=== PATIENT | male | born 1965 | race Caucasian/White ===

== ENCOUNTER → 2020-09-05 08:14 | Outpatient (BNVA) | payer SELFPAY | PROVIDERS: PCP Internal Medicine; Referring Provider Internal Medicine; Visit Provider Internal Medicine Cardiovascular Disease | DX: I44.4 Left anterior fascicular block (principal); I10 Essential (primary) hypertension; E11.9 Type 2 diabetes mellitus without complications; Z91.89 Other specified personal risk factors, not elsewhere classified; Z79.82 Long term (current) use of aspirin; Z79.84 Long term (current) use of oral hypoglycemic drugs; Z79.899 Other long term (current) drug therapy | CPT/HCPCS: 93005; 99212 ==

== ENCOUNTER → 2022-08-19 10:35 | Outpatient (BNVA) | payer BC, SELFPAY | PROVIDERS: PCP Internal Medicine; Referring Provider Internal Medicine; Visit Provider Internal Medicine Cardiovascular Disease | DX: Z09 Encounter for follow-up examination after completed treatment for conditions other than malignant neoplasm (principal); Z91.89 Other specified personal risk factors, not elsewhere classified; I10 Essential (primary) hypertension | CPT/HCPCS: 93005 ==

== ENCOUNTER 2023-12-21 16:03 | Outpatient (AMB) | payer BC, SELFPAY ==
[2023-12-21 16:19] VITALS: BP 132/80; PULSE 100; O2SAT 97; BMI 29.8
--- NOTE | 2023-12-21 16:19 | A.OFFPC_ITS ---
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 Accompanied by: Self / Same As Patient Allergies simvastatin Allergy (Intermediate, Verified 12/21/23 16:45) muscle pain/cramps, muscle cramps Medication List - Last Reconciled 12/21/23 by Lamont Gill MD cholecalciferol (vitamin D3) 50 mcg PO DAILY 90 days coenzyme Q10 100 mg PO DAILY lisinopril-hydrochlorothiazide 20-12.5 mg 1 tab PO DAILY 90 days lorazepam Take 1/2 to 1 tablet PO daily PRN; 30 days metformin ER 1,000 mg (2 x 500 mg) PO BID 90 days omega-3 fatty acids (Fish Oil Concentrate) 1,000 mg PO DAILY rosuvastatin 10 mg PO DAILY Tobacco use date assessed: 12/17/22 Dental Screening Dental Screen Date: 12/21/23 Did you have a dental visit in the last 12 months?: Yes Did you have a dental problem in the last 6 months where you did not have access to dental care?: No Was dental information given to patient?: Patient has dentist PAMELLA cabrales HPI Details Patient comes in today for his annual physical examination States that he feels well He denies any headaches or dizziness Denies any chest pains, no shortness of breath No nausea / vomiting, no abdominal pain No change in bowel habits noted Denies any acute urinary symptoms Had his follow-up labs done at [facility] a couple of weeks ago - to discuss his results Patient is up-to-date with his colon cancer screening - will be due repeat colonoscopy in late 2024 [facility] Medical History (Updated 12/22/23 @ 03:17 by Lamont Gill MD) Vitamin D deficiency Mixed hyperlipidemia Family history of heart disease Spindle cell sarcoma Impaired fasting glucose Overweight (BMI 25.0-29.9) Pure hypercholesterolemia Benign essential hypertension Anxiety LAFB (left anterior fascicular block) Surgical History (Updated 12/22/23 @ 03:18 by Lamont Gill MD) Hx of colonoscopy (~10/15/15) Hx of right knee surgery (~1986) Hx of abdominal surgery (~1999) History of rotator cuff surgery Family History Father CVD (cardiovascular disease) Mother CVD (cardiovascular disease) Social History Housing: House Alcohol intake: current Alcohol intake frequency: a few times a week Patient Tobacco Use Status: Never used Tobacco e-Cigarette/Vaping Use: Never Used Second Hand Smoke Exposure: Yes service: Yes Current occupational status: employed Current occupation: industrial tech instructor Cognitive needs: No Hearing needs: No Vision needs: No Questionnaire PHQ-9 Over the last 2 weeks, how often have you been bothered by any of the following problems? 1. Little interest or pleasure in doing things: not at all 2. Feeling down, depressed, or hopeless: not at all 3. Trouble falling or staying asleep, or sleeping too much: not at all 4. Feeling tired or having little energy: not at all 5. Poor appetite or overeating: not at all 6. Feeling bad about yourself - or that you are a failure or have let yourself or your family down: not at all 7. Trouble concentrating on things, such as reading the newspaper or watching television: not at all 8. Moving or speaking so slowly that other people could have noticed. Or the opposite - being so fidgety or restless that you have been moving around a lot more than usual: not at all 9. Thoughts that you would be better off or of hurting yourself in some way: not at all Total score: 0 Depression Screening Interpretation: Negative Depression Screening Done: Yes 14829 - PHQ-9 Billing: Yes Source: Developed by Drs. Trevor Carreon, Pricila Putnam, Venancio Castaneda and colleagues, with an educational stacey from [employer]. Thrive Questionnaire Date Thrive assessed: 12/21/23 I am a: Patient What is your living situation today?: I have a steady place to live Within the past 12 months, did the food you bought not last and you didn't have the money to get more?: Never true Within the past 12 months, did you worry whether your food would run out before you got money to buy more?: Never true Do you have trouble paying for medicines?: No Do you have trouble getting transportation to medical appointments?: No Do you have trouble paying your heating and electricity bill?: No Do you have trouble taking care of your child, family member or friend?: No Do you have trouble with day-to-day activities such as bathing, preparing meals, shopping, managing finances, etc.?: No Are you currently unemployed and looking for a job?: No Are you interested in more education?: No Please select the resources that you would like help with: None Currently or been in a relationship where the following occur: no concerns reported THRIVE Score: 0 AUDIT C Alcohol Use Questionnaire (AUDIT-C) 1. How often do you have a drink containing alcohol?: 2-3 times a week 2. How many drinks containing alcohol do you have on a typical day when you are drinking?: 1 or 2 3. How often do you have six or more drinks on one occasion?: Never Total Score: 3 Score Reviewed/Action Taken: Yes JOANN-7 AMB Questionnaire JOANN-7 Date JOANN - 7 assessed: 12/21/23 Feeling nervous, anxious, or on edge: 0 = Not at all Not being able to stop or control worryin = Not at all Worrying too much about different things: 0 = Not at all Trouble relaxin = Not at all Being so restless that it is hard to sit still: 0 = Not at all Becoming easily annoyed or irritable: 0 = Not at all Feeling afraid as if something awful might happen: 0 = Not at all Total JOANN-7 score (0-4 normal; 5-9 mild; 10-14 moderate; 15-21 severe): 0 Source: Developed by Drs. Trevor Carreon, Pricila Putnam, Venancio Castaneda and colleagues, with an educational stacey from [employer]. Review of Systems Const Denies chills, Denies fatigue, Denies fever(s), Denies headache(s), Denies malaise and Denies weakness Eyes Denies blurry vision, Denies change in vision, Denies irritation and Denies itchy eyes ENT Denies dysphagia, Denies dizziness, Denies otalgia, Denies headache(s), Denies nasal congestion, Denies neck pain, Denies odynophagia and Denies sore throat Card Denies chest pain, Denies rapid heart rate, Denies irregular heart rhythm, Denies palpitations and Denies dyspnea Resp Denies chest congestion, Denies cough, Denies dyspnea and Denies wheezing GI Denies abdominal pain, Denies bloating, Denies constipation, Denies dysphagia, Denies heartburn, Denies diarrhea, Denies nausea, Denies odynophagia and Denies vomiting Denies hematuria, Denies difficulty urinating, Denies dysuria, Denies urinary frequency and Denies urinary urgency Musc Denies back pain, Denies arthralgias, Denies joint swelling, Denies muscle weakness and Denies neck pain Skin/Breast Denies change in pigmentation, Denies lesions, Denies rash and Denies unusual bruising Neuro Denies dizziness, Denies headache(s), Denies paresthesias and Denies weakness Endo Denies fatigue and Denies palpitations Aller/Immun Denies itchy eyes and Denies wheezing Physical exam (Primary Care) Vital Signs: Last Vital Signs Pulse 100 12/21/23 16:19 BP 132/80 12/21/23 16:19 Pulse Ox 97 12/21/23 16:19 Oxygen Delivery Method Room Air 12/21/23 16:19 BMI result Body Mass Index 29.8 Tobacco/Smoking Status: Tobacco use Status Tobacco use date assessed 12/17/22 12/21/23 16:21 Patient Tobacco Use Status Never used Tobacco 12/21/23 16:21 e-Cigarette/Vaping Use Never Used 12/21/23 16:21 PHQ-9: PHQ-9 Score PHQ-9: Total score 0 12/22/23 02:54 Depression Screening Interpretation: Negative Thrive Assessment: Date of Thrive Assessment Date Thrive assessed 12/21/23 12/21/23 16:21 Currently or been in a relationship where the following occur: no concerns reported Const General: no acute distress, alert and awake Orientation/consciousness: patient oriented x3 HENMT Head: Yes normocephalic and Yes atraumatic Ears: external ears normal, TM's normal bilaterally and EAC's normal General nose exam: No nasal discharge present Face and sinus: Yes normal facial exam and Yes sinuses nontender Teeth and gingiva: dentition normal Throat: Yes posterior oropharynx normal and Yes tonsils normal (no TP congestion) Eyes Eyelids: Yes eyelids normal Conjunctivae: conjunctivae normal Pupils: Equal, round and reactive pupils present EOM: EOMs intact bilaterally Neck Neck: Yes no lymphadenopathy and Yes supple Thyroid: Thyroid normal Resp Auscultation: clear to auscultation bilaterally, no rales and no wheezes Cardio Rate: regular rate Rhythm: regular rhythm Heart sounds: no murmurs GI Palpation (GI): Soft to palpation, nontender and No hepatosplenomegaly present Auscultation: normal bowel sounds General: Yes no CVA tenderness Back/Spine/Pelvis Back: no CVA tenderness Thoracic/Lumbar Spine: thoracic and lumbar spine normal to inspection Skin Lesions: no lesions Rashes: no rashes Neuro General: patient oriented x3, moves all extremities, no focal motor deficits and CN's II-XI intact bilaterally Cranial nerves: Yes Equal, round and reactive pupils present Cognition (Neuro): normal cognition Gait exam (Neuro): Normal gait present Extrem General: Yes no clubbing, cyanosis or edema Assessment and Plan Assessment & Plan (1) Annual physical exam: Code(s): Z00.00 - Encounter for general adult medical examination without abnormal findings Plan: Results of his labs done a couple of weeks ago reviewed and discussed with patient He is up-to-date with his colon cancer screening - will be due for repeat colonoscopy in late 2024 (2) Elevated PSA: Code(s): R97.20 - Elevated prostate specific antigen [PSA] Plan: Patient cautioned that his PSA level is still elevated at 3.40 on his recent labs; his level increased from 1.55 to 3.60 last year Patient states that he remains asymptomatic and denies any acute urinary symptoms but as his PSA remains elevated from last year, will refer him to urology for further evaluation and management (3) Pure hypercholesterolemia: Code(s): E78.00 - Pure hypercholesterolemia, unspecified Plan: Patient is advised that his cholesterol level has increased again slightly from previous on his recent labs (LDL cholesterol has increased slightly from 94.8 to 103.6 mg/dl Reinforced low cholesterol diet Continue Rosuvastatin 10 mg QD and Co-Q10 tablets daily Will recheck his labs and fasting lipids in 1 year for follow up (4) Benign essential hypertension: Code(s): I10 - Essential (primary) hypertension Plan: Reinforced low sodium diet - goal is systolic BP of at 120 mm or less Continue Lisinopril-HCT 20-12.5 mg QD (5) Impaired fasting glucose: Code(s): R73.01 - Impaired fasting glucose Plan: HgbA1c was at 6.1% on his labs done a couple of weeks ago; was at 6.2% last year Reinforced low calorie/diabetic diet and exercise as tolerated Continue Metformin ER 500 mg 2 tablets BID Will recheck his FBS and HgbA1c again in 1 year for follow up (6) LAFB (left anterior fascicular block): Code(s): I44.4 - Left anterior fascicular block Plan: Left anterior fascicular block is unchanged at his last cardiology visit in August 2020 -?no interventions required and will continue to monitor this regularly Follow up with cardiology as scheduled (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, unspecified Plan: S/P extensive surgery of his right abdominal wall at [facility] in [place] in 1999 (8) Vitamin D deficiency: Code(s): E55.9 - Vitamin D deficiency, unspecified Plan: Continue Vitamin D3 2000 units QD (9) Anxiety: Code(s): F41.9 - Anxiety disorder, unspecified Plan: Continue Lorazepam 1 mg 1/2 to 1 tablet QD PRN (10) Overweight (BMI 25.0-29.9): Code(s): E66.3 - Overweight Plan: Reinforced diet/exercise as tolerated/lose weight Plan To return in 1 year for his next annual physical examination Orders: Orders Complete Blood Count Auto Diff 364 Days D64.9 - Anemia, unspecified, Z00.00 - Encounter for general adult medical examination without abnormal findings Comprehensive Pearl. Panel Fast 364 Days E78.00 - Pure hypercholesterolemia, unspecified, Z00.00 - Encounter for general adult medical examination without abnormal findings UA CC w/rflx Micro + Cult 364 Days R30.0 - Dysuria, Z00.00 - Encounter for general adult medical examination without abnormal findings Vitamin D 25-OH Total 364 Days E55.9 - Vitamin D deficiency, unspecified, Z00.00 - Encounter for general adult medical examination without abnormal findings Lipid Panel 364 Days E78.00 - Pure hypercholesterolemia, unspecified, Z00.00 - Encounter for general adult medical examination without abnormal findings TSH reflex Free T4 364 Days E78.00 - Pure hypercholesterolemia, unspecified, Z00.00 - Encounter for general adult medical examination without abnormal findings Prostate Specific Antigen 364 Days R97.20 - Elevated prostate specific antigen [PSA], Z00.00 - Encounter for general adult medical examination without abnormal findings Hemoglobin A1c 364 Days R73.01 - Impaired fasting glucose, Z00.00 - Encounter for general adult medical examination without abnormal findings Referrals Urology Referral R97.20 - Elevated prostate specific antigen [PSA] Coding Level of Care Code Est Pt Prev Care 40-64y(27498) Diagnoses Annual physical exam Z00.00 Elevated PSA R97.20 Pure hypercholesterolemia E78.00 Benign essential hypertension I10 Impaired fasting glucose R73.01 LAFB (left anterior fascicular block) I44.4 Spindle cell sarcoma C49.9 Vitamin D deficiency E55.9 Anxiety F41.9 Overweight (BMI 25.0-29.9) E66.3
== END 2023-12-21 17:05 | disposition home or self-care (01) ==
PROVIDERS: PCP Internal Medicine; Visit Provider Internal Medicine
DX: Z00.00 Encounter for general adult medical examination without abnormal findings (principal); C49.9 Malignant neoplasm of connective and soft tissue, unspecified; R97.20 Elevated prostate specific antigen [PSA]; E78.00 Pure hypercholesterolemia, unspecified; I10 Essential (primary) hypertension; R73.01 Impaired fasting glucose; I44.4 Left anterior fascicular block; E55.9 Vitamin D deficiency, unspecified; F41.9 Anxiety disorder, unspecified; E66.3 Overweight
CPT/HCPCS: 99396

== ENCOUNTER 2024-10-18 14:35 | Outpatient (AMB) | payer BC, SELFPAY ==
--- NOTE | 2024-10-18 14:39 | A.OFFVIS_ITS ---
Vital Signs 10/18/24 14:42 Height 5 ft 10 in Weight 202 lb 13.204 oz BMI 29.1 BP 120/72 Blood Pressure Location Lt brachial Position Sitting Pulse 100 Intake Visit Reasons: 2 yr f/up Intake Note: 2 year follow-up with ekg feeling good [place] Required: No Allergies simvastatin Allergy (Intermediate, Verified 12/21/23 16:45) muscle pain/cramps, muscle cramps Medication List - Last Reconciled 10/18/24 by Bob Aviles MD lisinopril-hydrochlorothiazide 20-12.5 mg 1 tab PO DAILY 90 days metformin ER 1,000 mg (2 x 500 mg) PO BID 90 days HPI Comments Details: Juan comes for follow-up. He has been doing very well from cardiac perspective. He said he has participate in intense lifestyle modification has lost some weight. He has also been exercising regularly. He denies any exertional chest pain or shortness of breath. His blood pressures been better controlled. He said his hemoglobin A1c has not been checked. He is currently off statin therapy as he did not want to be on a lot of different medications. No recent lipid panel. Comes for further evaluation management. [facility] Medical History Vitamin D deficiency Mixed hyperlipidemia Family history of heart disease Spindle cell sarcoma Impaired fasting glucose Overweight (BMI 25.0-29.9) Pure hypercholesterolemia Benign essential hypertension Anxiety LAFB (left anterior fascicular block) Surgical History Hx of colonoscopy (~10/15/15) Hx of right knee surgery (~1986) Hx of abdominal surgery (~1999) History of rotator cuff surgery Family History Father CVD (cardiovascular disease) Mother CVD (cardiovascular disease) Social History Housing: House Alcohol intake: current Alcohol intake frequency: a few times a week Patient Tobacco Use Status: Never used Tobacco e-Cigarette/Vaping Use: Never Used Second Hand Smoke Exposure: Yes service: Yes Current occupational status: employed Current occupation: boilermaker industrial boilers Cognitive needs: No Hearing needs: No Vision needs: No Review of Systems Const Denies chills, Denies fatigue, Denies fever(s), Denies frequent falls, Denies weakness, Denies weight gain and Denies weight loss ENT Denies dizziness Card Denies chest pain, Denies leg edema, Denies lightheadedness, Denies palpitations, Denies dyspnea, Denies dyspnea on exertion, Denies orthopnea and Denies other (loss of consciousness) Resp Denies cough, Denies dyspnea and Denies dyspnea on exertion GI Denies hematochezia and Denies change in stool character Musc Denies abnormal gait, Denies muscle weakness, Denies numbness, Denies radiating pain into limb and Denies tingling Neuro Denies abnormal gait, Denies dizziness, Denies frequent falls, Denies numbness, Denies tingling and Denies weakness Endo Denies fatigue and Denies palpitations Physical Exam Vital Signs: Last Vital Signs Pulse 100 10/18/24 14:42 BP 120/72 10/18/24 14:42 BMI result Body Mass Index 29.1 Const General: cooperative, healthy appearing, comfortable, no acute distress, well developed, alert and awake Nutritional Appearance: overweight Orientation/consciousness: patient oriented x3 Limitations: no limitations HEENT Head: Yes normal to inspection, Yes normocephalic and Yes atraumatic Eyes General: appearance normal, both eyes and all related structures Neck Neck: Yes normal visual inspection, Yes trachea midline, Yes supple and Yes no JVD Carotids: other ( No carotid bruit) Chest Chest palpation & inspection: normal inspection of the chest Resp Effort & Inspection: normal respiratory effort Auscultation: clear to auscultation bilaterally Cardio Jugular venous distension: no JVD Palpation: normal PMI Rate: regular rate Rhythm: regular rhythm Heart sounds: S1 normal heart sound present Peripheral pulses: Peripheral pulses 2+ throughout GI Inspection: Yes normal to inspection Auscultation: normal bowel sounds Skin General skin exam: no rashes or lesions noted, elasticity normal and turgor normal Neuro General: patient oriented x3 and no focal motor deficits Extrem General: Yes no clubbing, cyanosis or edema Psych Appearance: grossly normal Office Procedures EKG Details: EKG shows normal sinus rhythm with right superior axis deviation. [id number], Complete Assessment & Plan Assessment & Plan (1) Mixed hyperlipidemia: Code(s): E78.2 - Mixed hyperlipidemia Category: Medical Plan: Mixed hyperlipidemia in this middle-aged man has been participating intense lifestyle modifications currently on statin therapy. Has multiple risk factors for vascular disease. He is currently not having any active symptoms. I suggest him to follow-up with repeat lipid panel fasting along with CRP as well as apolipoprotein B and lipoprotein a in the near future. Also suggested further screening for atherosclerosis with coronary calcium score. Will further direct therapy based on the findings. We discussed about given his underlying risk factor if he has significant calcium buildup may need further provocative testing to evaluate for myocardial ischemia even if he is asymptomatic. He understands and is wanting to pursue this. (2) HTN (hypertension): Code(s): I10 - Essential (primary) hypertension Category: Medical Plan: Hypertension which is currently well optimized advised to monitor blood pressure at home maintain a log. Goal blood pressure less than 130/84. Continue current therapy which has helped him significantly. Low-salt diet was discussed maintain heart healthy lifestyle and regular physical activity. Will follow up in the clinic in 2 years time, sooner p.r.n.. Thank you for allowing me to partake in his care Orders: Orders Apolipoprotein B Today E78.2 - Mixed hyperlipidemia Lipoprotein A Today E78.2 - Mixed hyperlipidemia CRP High Sensitivity Today E78.2 - Mixed hyperlipidemia CT Coronary Calcium Score 4 Weeks E78.2 - Mixed hyperlipidemia Lipid Panel Today E78.2 - Mixed hyperlipidemia Coding Level of Care Code Est Pt Level 4 (88774) Complex EM visit Add On G2211 Diagnoses Mixed hyperlipidemia E78.2 HTN (hypertension) I10 CPT Codes EKG - CPT: 10927-[id number], Complete ([id number])
[2024-10-18 14:42] VITALS: BP 120/72; PULSE 100; BMI 29.1
== END 2024-10-18 15:18 | disposition home or self-care (01) ==
PROVIDERS: PCP Internal Medicine; Visit Provider Internal Medicine Cardiovascular Disease
DX: E78.2 Mixed hyperlipidemia (principal); I10 Essential (primary) hypertension
CPT/HCPCS: 93010; 99214

== ENCOUNTER → 2024-10-18 14:35 | Outpatient (BNVA) | payer BC, SELFPAY | PROVIDERS: PCP Internal Medicine; Visit Provider Internal Medicine Cardiovascular Disease | DX: E78.2 Mixed hyperlipidemia (principal); I10 Essential (primary) hypertension; E55.9 Vitamin D deficiency, unspecified | CPT/HCPCS: 93005 ==

== ENCOUNTER 2024-12-23 08:50 | Outpatient (AMB) | payer BC, SELFPAY ==
[2024-12-23 08:52] VITALS: BP 110/70; PULSE 104; O2SAT 96; BMI 30.1
--- NOTE | 2024-12-23 08:52 | A.OFFPC_ITS ---
Vital Signs 12/23/24 08:52 Height 5 ft 10 in Weight 210 lb 2 oz BMI 30.1 BP 110/70 Blood Pressure Location Lt brachial Position Sitting Pulse 104 H Pulse Source Pulse Oximeter Pulse Oximetry (%) 96 Oxygen Delivery Method Room Air Intake Visit Reasons: annual PE Counselor At Law Required: No Accompanied by: Self / Same As Patient Allergies simvastatin Allergy (Intermediate, Verified 12/23/24 09:16) muscle pain/cramps, muscle cramps Medication List - Last Reconciled 12/23/24 by Lamont Gill MD atorvastatin 40 mg PO BEDTIME lisinopril-hydrochlorothiazide 20-12.5 mg 1 tab PO DAILY 90 days metformin ER 1,000 mg (2 x 500 mg) PO BID 90 days Tobacco use date assessed: 12/23/24 Dental Screening Dental Screen Date: 12/23/24 Did you have a dental visit in the last 12 months?: Yes Did you have a dental problem in the last 6 months where you did not have access to dental care?: No Was dental information given to patient?: Patient has dentist HPI annual PE HPI Details Patient comes in today for his annual physical examination States that he feels okay He denies any headaches or dizziness Denies any chest pains, no SOB No nausea/vomiting, no abdominal pain No change in bowel habits noted Denies any acute urinary symptoms He had his follow up labs done at [facility] in [place] last month - to discuss his results Patient adds that he was sent for a coronary CT by Dr. Aviles and he just had it done in [place] last month - is wondering if we received a copy of his results or not States that Dr. Aviles also changed his Simvastatin and he is now on Atorvastatin 40 mg QD instead ON LICENSE OF [facility] Medical History (Updated 12/23/24 @ 10:43 by Lamont Gill MD) Vitamin D deficiency Mixed hyperlipidemia Family history of heart disease Spindle cell sarcoma Impaired fasting glucose Overweight (BMI 25.0-29.9) Pure hypercholesterolemia Benign essential hypertension Anxiety LAFB (left anterior fascicular block) Surgical History Hx of colonoscopy (~10/15/15) Hx of right knee surgery (~1986) Hx of abdominal surgery (~1999) History of rotator cuff surgery Family History Father CVD (cardiovascular disease) Mother CVD (cardiovascular disease) Social History Housing: House Alcohol intake: current Alcohol intake frequency: a few times a week Patient Tobacco Use Status: Never used Tobacco e-Cigarette/Vaping Use: Never Used Second Hand Smoke Exposure: Yes service: Yes Current occupational status: employed Current occupation: industrial relations worker Cognitive needs: No Hearing needs: No Vision needs: No Questionnaire PHQ-9 Over the last 2 weeks, how often have you been bothered by any of the following problems? 1. Little interest or pleasure in doing things: not at all 2. Feeling down, depressed, or hopeless: not at all 3. Trouble falling or staying asleep, or sleeping too much: not at all 4. Feeling tired or having little energy: not at all 5. Poor appetite or overeating: not at all 6. Feeling bad about yourself - or that you are a failure or have let yourself or your family down: not at all 7. Trouble concentrating on things, such as reading the newspaper or watching television: not at all 8. Moving or speaking so slowly that other people could have noticed. Or the opposite - being so fidgety or restless that you have been moving around a lot more than usual: not at all 9. Thoughts that you would be better off or of hurting yourself in some way: not at all Total score: 0 Depression Screening Interpretation: Negative Depression Screening Done: Yes 60418 - PHQ-9 Billing: Yes Source: Developed by Drs. Trevor Carreon, Pricila Putnam, Venancio Castaneda and colleagues, with an educational stacey from [employer] Thrive Questionnaire Date Thrive assessed: 12/23/24 I am a: Patient What is your living situation today?: I have a steady place to live Within the past 12 months, did the food you bought not last and you didn't have the money to get more?: I choose not to answer this question Within the past 12 months, did you worry whether your food would run out before you got money to buy more?: I choose not to answer this question Do you have trouble paying for medicines?: I choose not to answer this question Do you have trouble getting transportation to medical appointments?: I choose not to answer this question Do you have trouble paying your heating and electricity bill?: I choose not to answer this question Do you have trouble taking care of your child, family member or friend?: I choose not to answer this question Do you have trouble with day-to-day activities such as bathing, preparing meals, shopping, managing finances, etc.?: I choose not to answer this question Are you currently unemployed and looking for a job?: I choose not to answer this question Are you interested in more education?: I choose not to answer this question Please select the resources that you would like help with: None Currently or been in a relationship where the following occur: No concerns reported THRIVE Score: 0 AUDIT C Alcohol Use Questionnaire (AUDIT-C) 1. How often do you have a drink containing alcohol?: Never 2. How many drinks containing alcohol do you have on a typical day when you are drinking?: 1 or 2 3. How often do you have six or more drinks on one occasion?: Monthly Total Score: 2 Score Reviewed/Action Taken: Yes JOANN-7 AMB Questionnaire JOANN-7 Date JOANN - 7 assessed: 12/23/24 Feeling nervous, anxious, or on edge: 0 = Not at all Not being able to stop or control worryin = Not at all Worrying too much about different things: 0 = Not at all Trouble relaxin = Not at all Being so restless that it is hard to sit still: 0 = Not at all Becoming easily annoyed or irritable: 0 = Not at all Feeling afraid as if something awful might happen: 0 = Not at all Total JOANN-7 score (0-4 normal; 5-9 mild; 10-14 moderate; 15-21 severe): 0 Source: Developed by Drs. Trevor Carreon, Pricila Putnam, Venancio Castaneda and colleagues, with an educational stacey from [employer] Review of Systems Const Denies chills, Denies fatigue, Denies fever(s), Denies headache(s), Denies malaise and Denies weakness Eyes Denies blurry vision, Denies change in vision, Denies irritation and Denies itchy eyes ENT Denies dysphagia, Denies dizziness, Denies otalgia, Denies headache(s), Denies nasal congestion, Denies neck pain, Denies odynophagia and Denies sore throat Card Denies chest pain, Denies rapid heart rate, Denies irregular heart rhythm, Denies palpitations and Denies dyspnea Resp Denies chest congestion, Denies cough, Denies dyspnea and Denies wheezing GI Denies abdominal pain, Denies bloating, Denies constipation, Denies dysphagia, Denies heartburn, Denies diarrhea, Denies nausea, Denies odynophagia and Denies vomiting Denies hematuria, Denies difficulty urinating, Denies dysuria, Denies urinary frequency and Denies urinary urgency Musc Denies back pain, Denies arthralgias, Denies joint swelling, Denies muscle weakness and Denies neck pain Skin/Breast Denies change in pigmentation, Denies lesions, Denies rash and Denies unusual bruising Neuro Denies dizziness, Denies headache(s), Denies paresthesias and Denies weakness Endo Denies fatigue and Denies palpitations Aller/Immun Denies itchy eyes and Denies wheezing Physical exam (Primary Care) Vital Signs: Last Vital Signs Pulse 104 H 12/23/24 08:52 BP 110/70 12/23/24 08:52 Pulse Ox 96 12/23/24 08:52 Oxygen Delivery Method Room Air 12/23/24 08:52 BMI result Body Mass Index 30.1 Tobacco/Smoking Status: Tobacco use Status Tobacco use date assessed 12/23/24 12/23/24 08:55 Patient Tobacco Use Status Never used Tobacco 12/23/24 08:55 e-Cigarette/Vaping Use Never Used 12/23/24 08:55 PHQ-9: PHQ-9 Score PHQ-9: Total score 0 12/23/24 08:55 Depression Screening Interpretation: Negative Thrive Assessment: Date of Thrive Assessment Date Thrive assessed 12/23/24 12/23/24 08:55 Currently or been in a relationship where the following occur: No concerns reported Const General: no acute distress, alert and awake Orientation/consciousness: patient oriented x3 HENMT Head: Yes normocephalic and Yes atraumatic Ears: external ears normal, TM's normal bilaterally and EAC's normal General nose exam: No nasal discharge present Face and sinus: Yes normal facial exam and Yes sinuses nontender Teeth and gingiva: dentition normal Throat: Yes posterior oropharynx normal and Yes tonsils normal (no TP congestion) Eyes Eyelids: Yes eyelids normal Conjunctivae: conjunctivae normal Pupils: Equal, round and reactive pupils present EOM: EOMs intact bilaterally Neck Neck: Yes no lymphadenopathy and Yes supple Thyroid: Thyroid normal Resp Auscultation: clear to auscultation bilaterally, no rales and no wheezes Cardio Rate: regular rate Rhythm: regular rhythm Heart sounds: no murmurs GI Palpation (GI): Soft to palpation, nontender and No hepatosplenomegaly present Auscultation: normal bowel sounds General: Yes no CVA tenderness Back/Spine/Pelvis Back: no CVA tenderness Thoracic/Lumbar Spine: thoracic and lumbar spine normal to inspection Skin Lesions: no lesions Rashes: no rashes Neuro General: patient oriented x3, moves all extremities, no focal motor deficits and CN's II-XI intact bilaterally Cranial nerves: Yes Equal, round and reactive pupils present Cognition (Neuro): normal cognition Gait exam (Neuro): Normal gait present Extrem General: Yes no clubbing, cyanosis or edema Coding Level of Care Code Est Pt Prev Care 40-64y(10639) Diagnoses Annual physical exam Z00.00 Pure hypercholesterolemia E78.00 Benign essential hypertension I10 Impaired fasting glucose R73.01 LAFB (left anterior fascicular block) I44.4 Elevated PSA R97.20 Vitamin D deficiency E55.9 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 Bonds back in 2014 (2) Pure hypercholesterolemia: Code(s): E78.00 - Pure hypercholesterolemia, unspecified Category: Medical Plan: He was switched over to Atorvastatin 40 mg QD from Simvastatin [address] Aviles recently as his cholesterol numbers went up significant from previous on his recent labs Patient admits that he was not compliant with his diet lately and was also not taking his medication consistently over the past few months Reinforced low cholesterol diet Will have him recheck his labs in 6 months for follow up - is advised that with the recent change in his medication, we would expect his cholesterol numbers to improve significantly over the next few months Will also have him repeat his labs and fasting lipids in 1 year before he comes back for his next annual physical examination (3) Benign essential hypertension: Code(s): I10 - Essential (primary) hypertension Category: Medical Plan: Reinforced low sodium diet - goal is systolic BP of at 120 mm or less Continue Lisinopril-HCT 20-12.5 mg QD (4) Impaired fasting glucose: Code(s): R73.01 - Impaired fasting glucose Category: Medical Plan: His HgbA1c was at 5.9% on his labs done last month; was at 6.1% last year Reinforced low calorie/diabetic diet and exercise as tolerated Continue Metformin ER 500 mg 2 tablets BID Will recheck his FBS and HgbA1c again in 1 year for follow up (5) LAFB (left anterior fascicular block): Code(s): I44.4 - Left anterior fascicular block Category: Medical Plan: Left anterior fascicular block is unchanged at his last cardiology visit a couple of months ago in 2023 -?no intervention is required at this time and will continue to monitor this regularly Follow up with cardiology as scheduled (6) Elevated PSA: Code(s): R97.20 - Elevated prostate specific antigen [PSA] Category: Medical Plan: He was previously referred to and was sen by urology last year for evaluation of his elevated PSA level Work ups done revealed (+) uroflow with randolph-shaped curve Repeat PSA was normal at 1.83, with no acute urinary symptoms He was advised to just continue with yearly PSA monitoring with his PCP and to just follow up with urology PRN (7) Vitamin D deficiency: Code(s): E55.9 - Vitamin D deficiency, unspecified Category: Medical Plan: Continue Vitamin D3 2000 units QD (8) Spindle cell sarcoma: Comment: abdomen Code(s): 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 - Malignant neoplasm of connective and soft tissue, unspecified Category: Medical Plan: S/P extensive surgery of his right abdominal wall at [facility] in [place] in 2000 (9) Anxiety: Code(s): F41.9 - Anxiety disorder, unspecified Category: Medical Plan: Continue Lorazepam 1 mg 1/2 to 1 tablet QD PRN (10) Overweight (BMI 25.0-29.9): Code(s): E66.3 - Overweight Category: Medical Plan: Reinforced diet/exercise as tolerated/lose weight (11) Colon cancer screening: Code(s): Z12.11 - Encounter for screening for malignant neoplasm of colon Category: Medical Plan: He is now due for repeat colonoscopy (last done in 2014) and will refer him back to Dr. Bonds at [facility] for repeat colonoscopy Plan To return in 1 year for his next annual physical examination Orders: Orders Comprehensive [place]. Panel Fast 6 Months E78.00 - Pure hypercholesterolemia, unspecified Hemoglobin A1c 6 Months R73.01 - Impaired fasting glucose Lipid Panel 1 Year E78.00 - Pure hypercholesterolemia, unspecified TSH reflex Free T4 1 Year E78.00 - Pure hypercholesterolemia, unspecified UA CC w/rflx Micro + Cult 1 Year R30.0 - Dysuria Prostate Specific Antigen 1 Year R97.20 - Elevated prostate specific antigen [PSA] Lipid Panel 6 Months E78.00 - Pure hypercholesterolemia, unspecified Complete Blood Count Auto Diff 1 Year D64.9 - Anemia, unspecified Comprehensive [place]. Panel Fast 1 Year E78.00 - Pure hypercholesterolemia, unspecified Hemoglobin A1c 1 Year R73.01 - Impaired fasting glucose Vitamin D 25-OH Total 1 Year E55.9 - Vitamin D deficiency, unspecified Referrals Gastroenterology Referral Z12.11 - Encounter for screening for malignant neoplasm of colon
--- OUTSIDE RECORDS SUMMARY | 2024-12-23 09:08 | XMS_ITS | Continuity of Care Document ---
Author Name [facility] Organization [facility] Care Team Providers Care Crane Crew Supervisor Name Role Phone [facility] Unavailable Unavailable Social History Combined list of available smoking, tobacco, and other social history from Department of Defense and Veterans Affairs facilities. Social History Type Response Date Comment Sourc e This section is an empty social history section. DoD
--- OUTSIDE RECORDS SUMMARY | 2024-12-23 09:08 | XMS_ITS | Continuity of Care Document ---
Author Organization [facility] Address [address] [place] [address]- Care Team Providers Care Android Platform Developer Name Role Phone Lamont Gill MD Primary Care Physician Encounter 11/16/24 - 11/23/24 [facility] [address], [address] [place] [address]- Attending Physician: Graciela Aviles DDS Admitting Physician: Graciela Aviles DDS Referring Physician: Graciela Aviles DDS Encounter Type: OutPatient One Time Allergies, Adverse Reactions, Alerts No Known Allergies Medications aspirin 81 mg oral delayed release tablet 81 mg, 1, tablet, By Mouth, Daily, Refills 0, Maintenance, 06/21/20 12:56:00 PM EDT Start Date: 06/21/20 Status: Ordered Repeat number: 1 Fish Oil By Mouth, 0 Refills, Maintenance, 06/21/20 12:56:00 PM EDT Start Date: 06/21/20 Status: Ordered Repeat number: 1 hydrochlorothiazide-lisinopril 12.5 mg-20 mg oral tablet 1 tablet, By Mouth, Daily, 0 Refills, Maintenance, 06/21/20 12:54:00 PM EDT Start Date: 06/21/20 Status: Ordered Repeat number: 1 metFORMIN 500 mg oral tablet 2 tablet = 1,000 mg, By Mouth, 2 times a day, 0 Refills, Maintenance, 06/21/20 12:55:00 PM EDT Start Date: 06/21/20 Status: Ordered Repeat number: 1 Results Radiology Reports * Exam Date Time Procedure Performing Provider Status 11/16/24 4:[address] Heart W/O Dye Amando Sravanthi Bingham; Auth (Verified) Notes: (CT Heart W/O Dye Amando Eval) Reason For Exam: E78,2 mixed hyperlipidemia RESULT: CT Heart W/O Dye Amando Eval CT Heart W/O Dye Amando Eval INDICATION: Reason: E78,2 mixed hyperlipidemia; Clinical Question(s): Other:. Male of age 59 years,race White COMPARISON: None TECHNIQUE: Coronary artery Calcium Scoring. After a localizing wildland fire fighter specialist image was obtained, an ECG-gated noncontrast exam was obtained of the heart in late diastole. The region of interest was limited to the heart in order to optimize image quality. Weight-based protocol using automatic tube modulation was used to optimize exposure parameters. A [employer] 64 scanner was used, with Agatston scoring performed using [employer] ([employer]) web-based software. This procedure is not being performed on thispatient for preoperative evaluation for low-risk surgery within 30 days. CTDIvol Body: 8.03 mGy, DLP Body: 128 mGy*cm. FINDINGS: Coronary Calcium Scoring Summary: Left Main: Score 16.9. LAD: Score 151. Circumflex: Score 195. Right: Score 51.8. TOTAL: Score 415. Non-coronary Findings: No suspicious lung finding. Unremarkable chest wall. Normal size heart. Normal size aorta. There is no adenopathy. Upper abdomen is unremarkable. No acute bony finding. IMPRESSION: The Agatston coronary calcium score is 415. The Multi-Ethnic Study of Atherosclerosis (AVELAR) trial on-line calculator can be used to determine the probability of having coronary calcification and the calcium score percentile for subjects basedon age, gender and race/ethnicity who are free of clinical cardiovascular disease and treated diabetes: http://www.avelar-nhlbi.org/Calcium/input.aspx The observed calcium score is at the 87 percentile. WSN: [id number] Ordering Physician: Graciela Aviles Dictated By: Liliana Alberto MD Dictated Date/Time: 11/18/24 5:45 pm Reviewed By: Liliana Alberto MD Signed By: Liliana Alberto MD Signed Date/Time: 11/18/24 5:45 pm Transcribed By: JOSE ALBERTO Transcribed Date/Time: 11/18/24 5:43 pm Patient Care team information Care Team Personnel Name: Jairo MD, Lamont S Position: Reference Physician Member Role: PCP Address: [address] [place] [address] [address] [place] [address]- [place] Tele[employer]: Care Team Related Persons Name: JEAN MARTINI Name: ODELL MARTINI Insurance Providers Guarantor name: MICHAEL MARTINI Health Plan Information #: 1 Payer: LIV: [employer] EXAM Member Number: [id number] Policy Number: NA Group Number: NA Health Plan Information #: 2 Payer: LIV: [employer] EXAM Member Number: [id number] Policy Number: NA Group Number: [id number]
== END 2024-12-23 09:45 | disposition home or self-care (01) ==
PROVIDERS: PCP Internal Medicine; Visit Provider Internal Medicine
DX: Z00.00 Encounter for general adult medical examination without abnormal findings (principal); E78.00 Pure hypercholesterolemia, unspecified; I10 Essential (primary) hypertension; R73.01 Impaired fasting glucose; I44.4 Left anterior fascicular block; R97.20 Elevated prostate specific antigen [PSA]; E55.9 Vitamin D deficiency, unspecified; C49.9 Malignant neoplasm of connective and soft tissue, unspecified; F41.9 Anxiety disorder, unspecified; E66.3 Overweight; Z12.11 Encounter for screening for malignant neoplasm of colon

== ENCOUNTER → 2024-12-23 08:50 | Outpatient (BNVA) | payer BC, SELFPAY | PROVIDERS: PCP Internal Medicine; Visit Provider Internal Medicine | DX: Z00.00 Encounter for general adult medical examination without abnormal findings (principal); E78.00 Pure hypercholesterolemia, unspecified; I10 Essential (primary) hypertension; R73.01 Impaired fasting glucose; I44.4 Left anterior fascicular block; R97.20 Elevated prostate specific antigen [PSA]; E55.9 Vitamin D deficiency, unspecified; C49.9 Malignant neoplasm of connective and soft tissue, unspecified; F41.9 Anxiety disorder, unspecified; E66.3 Overweight; Z79.84 Long term (current) use of oral hypoglycemic drugs; Z79.899 Other long term (current) drug therapy | CPT/HCPCS: 96127 ==

== ENCOUNTER → 2025-04-04 07:38 | Outpatient (REF) | payer BC, SELFPAY ==
--- NOTE | ~2025-04-04 | NM_ITS ---
EXERCISE MYOCARDIAL PERFUSION STUDY INDICATION: Atherosclerotic cardiovascular disease to evaluate for myocardial ischemia TECHNIQUE: The patient was brought in for an exercise perfusion study on April 04, 2025. Patient performed exercise as per Lucas protocol and was injected 30 mCi of sestamibi once target heart rate was achieved. Images were obtained using the SPECT gamma camera interlaced with the gating device. Images were obtained in supine position. Resting perfusion study was performed on April 05, 2025. Patient was administered 30 mCi of sestamibi intravenously at rest. Images were then obtained in supine position. Images obtained without without CT attenuation. Total DLP 77 mGy-cm. Images were processed with the software and compared side to side in short axis, horizontal long axis and vertical long axis views. FINDINGS: Raw images were reviewed The stress perfusion study showed nonattenuated images show normal uptake ordered images in all segments of the LV myocardium. Attenuated corrected images show mildly reduced uptake in the apex of the LV myocardium.. The gated study shows normal LV systolic function with calculated LVEF of 59%. LV cavity is normal in size. The gated study shows normal systolic wall thickening and contraction of segments. Resting study shows attenuated corrected images show no change in perfusion pattern compared to stress perfusion study. Gating at rest reveals normal systolic wall motion with ejection fraction at 62%. The findings are consistent with normal myocardial perfusion. NM/NM cardiolite stress test IMPRESSION: 1. Myocardial perfusion imaging study shows normal myocardial perfusion. 2. Gated LVEF is 62%. 3. Transient ischemic dilatation not present. EKG revealed negative for ischemia. Electronically signed by: Bob Aviles MD 04/05/2025 04:57 PM EDT
--- OUTSIDE RECORDS SUMMARY | 2025-04-04 07:40 | XMS_ITS | Continuity of Care Document ---
Author Name [facility] Organization [facility] Care Team Providers Care Preassembler And Inspector Name Role Phone [facility] Unavailable Unavailable Social History Combined list of available smoking, tobacco, and other social history from Department of Defense and Veterans Affairs facilities. Social History Type Response Date Comment Sourc e This section is an empty social history section. DoD
--- NOTE | 2025-04-04 07:41 | CA_ITS ---
Acquisition Time: 2025-04-04 08:09:23 Total Exercise Time: 00:09:00 Test Indications: CAD,Abnormal ECG Medications: LISINOPRIL/HCTZ METFORMIN Protocol: GLORIA Max HR: 142 BPM 89% of Pred: 159 BPM Max BP: 164/60 mmHG Max Work Load: 10.1 METS Exercise stress test with exercise 9 mins of Gloria Protocol, achieving 89% MPHR, without any anginal symptoms, with isolated PVCs, with normotensive response to exercise. Without any EKG changes meeting criteria for ischemia. In recovery, pt continued to feel good. Nuclear images pending. Test reviewed with Dr. Aviles. Referred By: Bob Aviles Electronically Signed By: Narayan Maravilla
== END ==
LOC: HO.CARD 07:38
PROVIDERS: PCP Internal Medicine; Visit Provider Internal Medicine Cardiovascular Disease
DX: I25.10 Atherosclerotic heart disease of native coronary artery without angina pectoris (principal); I10 Essential (primary) hypertension; E78.2 Mixed hyperlipidemia
CPT/HCPCS: 78452; 93017; A9500

== ENCOUNTER → 2025-04-04 07:41 | Outpatient (BNV) | payer BC, SELFPAY | PROVIDERS: PCP Internal Medicine | DX: I25.10 Atherosclerotic heart disease of native coronary artery without angina pectoris (principal) | CPT/HCPCS: 78452; 93016; 93018 ==